=== PATIENT | female | born 1960 | race American Indian/Alaskan Native ===

== ENCOUNTER 2017-07-02 03:06 | Emergency (ER) | payer SELFPAY ==
--- NOTE | 2017-07-02 08:07 | Emergency Department Report ---
HPI - General Chief Complaint: Neck Pain/Injury Time Seen by Provider: 07/02/17 07:53 - HPI HPI: Patient reports that she went to [facility] a few days ago and was treated for chronic neck pain and headache. Patient seemed to be very anxious about her blood pressure although on [facility] discharge report her blood pressure was stable and today her blood pressure is 146/74 on presentation to the emergency room. Patient's report in headache at the back of her head that feels like pressure. Neck pain 8 out of 10 which is chronic. She reports pain is radiating to both hands. Pain is 8 out of 10 and feels achy. Patient does have a history of chronic neck pain but she said that she has not had MRI or CT scan done since she is being followed for her pain. Denies any nasal congestion, runny nose or plugged ears sensation. Denies any back pain or chest pain. Denies any shortness of breath, coughing. She states can baclofen and Motrin which she said is not helping and this was prescribed by [facility]. She denies any fever or chills or neck pain or stiffness ED Past Medical Hx - Past Medical History Previous Medical History?: No - Surgical History Past Surgical History?: Yes Additional Surgical History: HYSTERECTOMY - Family History Family history: hypertension - Social History Smoking Status: Never Smoker Substance Use Type: None - Medications Home Medications: Home Medications Medication Instructions Recorded Confirmed Last Taken Type Amoxicillin [Amoxicillin TAB] 875 mg PO BID 7 Days #14 tablet 07/02/17 Unknown Rx Baclofen [Lioresal] 10 mg PO TID 07/02/17 07/02/17 1 Day Ago History ~07/01/17 Cetirizine HCl [ZyrTEC] 10 mg PO QDAY 10 Days #1 capsule 07/02/17 Unknown Rx Ibuprofen [Motrin 400 MG tab] 400 mg PO Q6HR 07/02/17 07/02/17 1 Day Ago History ~07/01/17 traMADol [Ultram] 50 mg PO Q6HR PRN #12 tablet 07/02/17 Unknown Rx ED Review of Systems ROS: Stated complaint: HEADACHE Other details as noted in HPI Comment: All other systems reviewed and negative Constitutional: no symptoms reported ENT: denies: ear pain, throat pain, dental pain, hearing loss, congestion Respiratory: no symptoms reported Cardiovascular: denies: chest pain, palpitations, dyspnea on exertion, edema, syncope, paroxysmal nocturnal dyspnea Gastrointestinal: denies: abdominal pain, nausea, vomiting, diarrhea, constipation Genitourinary: denies: dysuria, hematuria Musculoskeletal: arthralgia (chronic neck pain). denies: back pain, joint swelling, myalgia Skin: denies: rash Psychiatric: anxiety (about health) Physical Exam - Physical Exam Vital Signs: Vital Signs 07/02/17 03:35 Temperature 97.9 F Pulse Rate 81 Respiratory 18 Rate Blood Pressure 146/74 O2 Sat by Pulse 97 Oximetry Vital Signs 07/02/17 07/02/17 03:35 09:14 Temperature 97.9 F Pulse Rate 81 67 Respiratory 18 18 Rate Blood Pressure 146/74 Blood Pressure 150/81 [Left] O2 Sat by Pulse 97 98 Oximetry General: This is a 57-year-old female well-nourished well-developed in no acute distress Physical Exam: Head: Normocephalic, atraumatic, no abrasion, no bruising and no contusion. Eyes: Biateral pupils equal and reactive to light, bilateral EOM intact.. Bilateral conjunctival and sclera without injection, normal accommodation. No nystagmus Mouth: Moist, no pharyngeal exudate or erythema. No peritonsillar abscesses. Uvula is midline and oral airways patent. Ears: Bilateral TM congested without erythema. Bilateral EAC without any redness swelling or drainage. No mastoid bone tenderness Nose: Bilateral nasal turbinates congested with erythema and clear drainage. Maxillary and frontal sinuses non- tender to palpate. Neck: Supple, No Cervical adenopathy, full range of motion and no C-spine tenderness. No swelling or tracheal deviation normal reflexes Cardiovascular: S1, S2. Regular rate and rhythm. No murmur. Capillary refill is less then 3 seconds. Lungs: Clear to auscultate bilaterally. No rhonchi, wheezes or rales. No chest wall tenderness. No chest contusion. No bruising to chest. MSK: Strength 5/5 in all extremities. No joint deformity or crepitus. Normal inspection. Full range of motion to all extremities. No laceration, abrasion or ecchymotic area noted. Abdomen: Non-tender to palpate in all quadrants, no guarding or rebound tenderness, positive bowel sounds in all quadrants. No CVA tenderness. No hernia, bruit or mass. No rigidity or distention. Extremities: No clubbing, cyanosis or edema. +2 pulses. No neurovascular compromise Skin: Clean, dry and intact. No rash or lesions. Neurological: GCS at 15, Pt is alert and oriented 3 speech is clear. Bilateral hand oncology rn strong and equal. Normal gait. Negative Romberg and no pronator drift. Normal Reflexes. No motor or sensory deficit Back: No vertebral tenderness, no paraspinal tenderness. Ambulates without any difficulties. Psych: Mild anxiety otherwise normal ED Course Vital Signs 07/02/17 03:35 Temperature 97.9 F Pulse Rate 81 Respiratory 18 Rate Blood Pressure 146/74 O2 Sat by Pulse 97 Oximetry Vital Signs 07/02/17 07/02/17 03:35 09:14 Temperature 97.9 F Pulse Rate 81 67 Respiratory 18 18 Rate Blood Pressure 146/74 Blood Pressure 150/81 [Left] O2 Sat by Pulse 97 98 Oximetry - Reevaluation(s) Reevaluation #1: 07/02/17 09:26 Patient given Valium 5 mg by mouth for anxiety about health and Salvo 5/325 one tablet by mouth for headache and neck pain. ED Medical Decision Making - Radiology Data Radiology results: report reviewed CT scan of C-spine reveals patient with no acute cervical spine fracture. Sensitivity of fracture detection is decreased by demineralization and degenerative finding. She has degenerative findings to C4 and 5 [address] C[address] 6[address] scan of head/brain without contrast no acute intracranial abdominal 80s. Right maxillary sinus causes significant versus mucosal retention cysts. No paranasal sinus air fluid level. - Medical Decision Making ED course: Patient here for chronic neck pain and also headache and was recently seen at [facility] and placed on baclofen and Motrin which she said is not helping. She says she did not have any kind of x-rays or CT scan done and she' s been having headache and neck pain for a while. CT scan of the head reveals no acute intracranial processes incidental finding for mucus thickening in a firm answer sinus with probably mucous retention cyst. CT of the next reveal degenerative disc disease with no acute fracture or subluxation. Please refer to radiology section for details on CT scan result. Patient is very anxious about her health and her blood pressure which has been stable. I discussed with her she needs to keep a log of her blood pressure and she does have a primary care physician so I told her to keep a log and record her blood pressure daily schedule an appointment and discuss her blood pressure with her primary care physician and if she needs to be started on something primary care physician will start her on medication but at this point she does not need any thing for her blood pressure because it is stable. I also discussed with her her CT scan findings. Patient was understanding the discharge diagnosis and treatment plan. She was given Valium 5 mg by mouth for anxiety about health and Salvo 5/325 one tablet for chronic neck pain and headache. The patient remained stable throughout ED course. She was discharged home with her family member with prescription for amoxicillin for probably sinusitis, Ultram for pain and I discussed with her that she'll need to follow up with a neurologist, orthopedic doctor and primary care physician who her primary care doctor can refer her to. She voiced understanding. Critical care attestation.: If time is entered above; I have spent that time in minutes in the direct care of this critically ill patient, excluding procedure time. ED Disposition Clinical Impression: Sinus mucosal thickening, Degenerative cervical disc, Chronic neck pain, Cervical radiculopathy Sinusitis Qualifiers: Sinusitis location: maxillary Chronicity: acute Recurrence: not specified as recurrent Qualified Code(s): J01.00 - Acute maxillary sinusitis, unspecified Headache Qualifiers: Headache type: unspecified Headache chronicity pattern: episodic headache Intractability: not intractable Qualified Code(s): R51 - Headache Disposition: DC-01 TO HOME OR SELFCARE Is pt being admited?: No Does the pt Need Aspirin: No Condition: Stable Instructions: Cervical Radiculopathy (ED), Degenerative Disc Disease (ED), Sinusitis (ED), Acute Headache (ED), How to Take a Blood Pressure (ED), Heart Healthy Diet (ED), Low Sodium Diet (ED) Additional Instructions: Please take blood pressure daily and keep a log and call your primary care physician to schedule an appointment Orthopedic doctor and urologist referral. Take Ultram and this will help with the pain but please not drive or operate heavy machinery while taking this medication You can have your doctor requesting a medical records to include CT scans from hospital You have a normal sinus findings on CT scan which could be sinusitis or a sinusitis and will need to follow with ear nose and throat doctor for further evaluation and treatment Prescriptions: Amoxicillin [Amoxicillin TAB] 875 mg PO BID 7 Days #14 tablet Cetirizine HCl [ZyrTEC] 10 mg PO QDAY 10 Days #1 capsule traMADol [Ultram] 50 mg PO Q6HR PRN #12 tablet PRN Reason: Pain Referrals: follow-up with your, primary care physician [Other] - 2-3 Days LEVY BROWN MD [Staff Physician] - 2-3 Days SALVADOR CAPELLAN MD [Staff Physician] - 2-3 Days JOMAR HENDERSON MD [Staff Physician] - 2-3 Days [facility] [Outside] - 2-3 Days Forms: Work/School Release Form(ED)
--- NOTE | 2017-07-02 08:45 | Cat Scan Report ---
FINAL REPORT EXAM: CT HEAD/BRAIN WO CON HISTORY: headache TECHNIQUE: CT imaging acquired through the head without intravenous contrast. Transaxial reformations are provided. PRIORS: None. FINDINGS: The ventricles, cisterns and sulci are within normal limits. No intraparenchymal or extra-axial mass, hemorrhage, or mass effect. Sykes and white-matter differentiation is within normal limits for patient age. Normal spherical shape of the globes. Right maxillary sinus mucous retention cyst/mucosal thickening. No paranasal sinus fluid levels. No significant abnormality involving the imaged portions of the remaining paranasal sinuses and mastoid air cells. No skull or facial fracture visualized. IMPRESSION: No acute intracranial abnormality. Right maxillary sinus mucosal thickening versus mucous retention cyst. No paranasal sinus air-fluid level.
--- NOTE | 2017-07-02 08:49 | Cat Scan Report ---
FINAL REPORT EXAM: CT CERVICAL SPINE WO CON HISTORY: neck pain with radiculopathy TECHNIQUE: CT imaging is acquired through the cervical spine without contrast. Transaxial, coronal and sagittal reformations are provided. PRIORS: None. FINDINGS: The cervical spine appears intact. Diffuse demineralization is suggested. Diffuse mild intervertebral disc space narrowing with associated endplate spondylosis and endplate remodeling. Calcification of the posterior longitudinal ligament is present at C4-C5 and C5-C6. Vertebral body heights are otherwise preserved. No acute fracture or listhesis. Atlanto-dens interval and odontoid process are intact. No perivertebral soft tissue swelling or hematoma identified. Limited soft tissue exam of the visualized neck is unremarkable. IMPRESSION: No acute cervical spine fracture identified. Sensitivity of fracture detection is decreased by demineralization and degenerative findings.Correlate with physical exam and follow up as warranted. Ossification of the posterior longitudinal ligament at C4-C5 and C5-C6.
[2017-07-02 09:14] VITALS: BP 150/81
[2017-07-02] MEDS ORDERED: NORCO 5/325 PO ONE (09:17)
[2017-07-02] MEDS ORDERED: VALIUM PO ONE (09:17)
== END 2017-07-02 09:52 | disposition home or self-care (01) ==
LOC: ED 03:06
DX: M50.10 Cervical disc disorder with radiculopathy, unspecified cervical region (principal); J01.00 Acute maxillary sinusitis, unspecified; G89.29 Other chronic pain; Z90.710 Acquired absence of both cervix and uterus
CPT/HCPCS: 70450; 72125

== ENCOUNTER 2019-02-11 00:38 | Emergency (ER) | payer SELFPAY ==
[2019-02-11 01:07] VITALS: BP 175/81
--- NOTE | 2019-02-11 02:21 | XRay Report ---
RIGHT KNEE 3 VIEWS INDICATION / CLINICAL INFORMATION: right knee pain COMPARISON: None available. FINDINGS: BONES / JOINT(S): No acute fracture or subluxation. No significant arthritis. SOFT TISSUES: No significant abnormality. ADDITIONAL FINDINGS: None. Signer Name: Rome Cason MD Signed: 02/11/2019 2:17 AM Workstation Name: [id number]
--- NOTE | 2019-02-11 02:22 | XRay Report ---
LUMBAR SPINE 3 VIEWS INDICATION: right lower back pain COMPARISON: None. FINDINGS: There is no fracture, subluxation, or other acute radiographic abnormality of the lumbar spine. There is minimal discogenic degenerative change at L5-S1. Signer Name: Rome Cason MD Signed: 02/11/2019 2:18 AM Workstation Name: [id number]
--- NOTE | 2019-02-11 02:24 | XRay Report ---
RIGHT FOOT 3 VIEWS INDICATION / CLINICAL INFORMATION: right foot pain COMPARISON: None available. FINDINGS: BONES / JOINT(S): There is a tiny ossification medial to the distal aspect of the proximal phalanx of the great toe which could represent a tiny avulsion fragment. There is degenerative change in the fi fth MTP joint SOFT TISSUES: No significant abnormality. ADDITIONAL FINDINGS: None. Signer Name: Rome Cason MD Signed: 02/11/2019 2:19 AM Workstation Name: [email or web address]
--- NOTE | 2019-02-11 02:25 | XRay Report ---
RIGHT WRIST 4 VIEWS INDICATION / CLINICAL INFORMATION: right wrist pain COMPARISON: None available. FINDINGS: BONES / JOINT(S): No acute fracture or subluxation. No significant arthritis. SOFT TISSUES: No significant abnormality. ADDITIONAL FINDINGS: None. Signer Name: Rome Cason MD Signed: 02/11/2019 2:20 AM Workstation Name: [email or web address][id number]
[2019-02-11] MEDS ORDERED: SKELAXIN PO STA (04:30)
[2019-02-11] MEDS ORDERED: NORCO 5/325 PO STA (04:30)
--- NOTE | 2019-02-11 04:51 | Emergency Department Report ---
ED Fall HPI - General Chief Complaint: Extremity Injury, Lower Stated Complaint: TOE, BACK, KNEE, WRIST, BACK OF HEAD PAIN Time Seen by Provider: 02/11/19 03:36 Source: patient Mode of arrival: Ambulatory - History of Present Illness Initial Comments: 58-year-old [place] female, walking in the store, tripped over something protruding out from the counter cold her balance. She tends to grab a noose stand to stop her from falling over. She continued to fall backwards striking her head on the back, hitting the back of her head causing a headache and pain to her knee back and neck region. Complaint: fall - Related Data Home Medications Medication Instructions Recorded Confirmed Last Taken Baclofen [Lioresal] 10 mg PO TID 07/02/17 07/02/17 1 Day Ago ~07/01/17 Ibuprofen [Motrin 400 MG tab] 400 mg PO Q6HR 07/02/17 07/02/17 1 Day Ago ~07/01/17 Previous Rx's Medication Instructions Recorded Last Taken Type Amoxicillin [Amoxicillin TAB] 875 mg PO BID 7 Days #14 tablet 07/02/17 Unknown Rx Cetirizine HCl [ZyrTEC] 10 mg PO QDAY 10 Days #1 capsule 07/02/17 Unknown Rx traMADol [Ultram] 50 mg PO Q6HR PRN #12 tablet 07/02/17 Unknown Rx Ketorolac [Toradol] 10 mg PO Q6H PRN #15 tablet 02/11/19 Unknown Rx methOCARBAMOL [Robaxin] 750 mg PO Q8H PRN #21 tablet 02/11/19 Unknown Rx Allergies Allergy/AdvReac Type Severity Reaction Status Date / Time No Known Allergies Allergy Unverified 07/02/17 03:34 ED Review of Systems ROS: Stated complaint: TOE, BACK, KNEE, WRIST, BACK OF HEAD PAIN Other details as noted in HPI Comment: All other systems reviewed and negative ED Past Medical Hx - Past Medical History Previous Medical History?: Yes Hx Hypertension: Yes - Surgical History Past Surgical History?: Yes Additional Surgical History: HYSTERECTOMY - Social History Smoking Status: Never Smoker Substance Use Type: None - Medications Home Medications: Home Medications Medication Instructions Recorded Confirmed Last Taken Type Amoxicillin [Amoxicillin TAB] 875 mg PO BID 7 Days #14 tablet 07/02/17 Unknown Rx Baclofen [Lioresal] 10 mg PO TID 07/02/17 07/02/17 1 Day Ago History ~07/01/17 Cetirizine HCl [ZyrTEC] 10 mg PO QDAY 10 Days #1 capsule 07/02/17 Unknown Rx Ibuprofen [Motrin 400 MG tab] 400 mg PO Q6HR 07/02/17 07/02/17 1 Day Ago History ~07/01/17 traMADol [Ultram] 50 mg PO Q6HR PRN #12 tablet 07/02/17 Unknown Rx Ketorolac [Toradol] 10 mg PO Q6H PRN #15 tablet 02/11/19 Unknown Rx methOCARBAMOL [Robaxin] 750 mg PO Q8H PRN #21 tablet 02/11/19 Unknown Rx ED Physical Exam - General Limitations: No Limitations General appearance: alert, in no apparent distress - Head Head exam: Present: atraumatic, normocephalic - Eye Eye exam: Present: normal appearance - ENT ENT exam: Present: mucous membranes moist - Neck Neck exam: Present: normal inspection, full ROM - Respiratory Respiratory exam: Present: normal lung sounds bilaterally. Absent: respiratory distress, wheezes, rales, rhonchi, chest wall tenderness, accessory muscle use - Cardiovascular Cardiovascular Exam: Present: regular rate, normal rhythm. Absent: systolic murmur, diastolic murmur, rubs, gallop - GI/Abdominal GI/Abdominal exam: Present: soft, normal bowel sounds. Absent: tenderness, guarding, rebound, hyperactive bowel sounds, hypoactive bowel sounds - Extremities Exam Extremities exam: Present: normal inspection, full ROM, tenderness (the right knee with palpation. Full range of motion. Normal varus and valgus. No deformity. Drawer test is negative.), normal capillary refill - Back Exam Back exam: Present: normal inspection, paraspinal tenderness. Absent: CVA tenderness (R), CVA tenderness (L), muscle spasm, vertebral tenderness - Neurological Exam Neurological exam: Present: alert, oriented X3, CN II-XII intact, normal gait - Psychiatric Psychiatric exam: Present: normal affect, normal mood - Skin Skin exam: Present: warm, dry, normal color. Absent: intact (superficial abrasion to the abdomen noted), rash ED Course Vital Signs 02/11/19 01:04 Temperature 98.4 F Pulse Rate 72 Respiratory 16 Rate Blood Pressure 175/81 O2 Sat by Pulse 96 Oximetry Critical care attestation.: If time is entered above; I have spent that time in minutes in the direct care of this critically ill patient, excluding procedure time. ED Disposition Condition: Stable Prescriptions: methOCARBAMOL [Robaxin] 750 mg PO Q8H PRN #21 tablet PRN Reason: Spasms Ketorolac [Toradol] 10 mg PO Q6H PRN #15 tablet PRN Reason: Pain Referrals: PRIMARY CARE, [Primary Care Provider] - 3-5 Days
== END 2019-02-11 05:33 | disposition home or self-care (01) ==
LOC: ED 00:38
DX: R51 Headache (principal); M25.561 Pain in right knee; I10 Essential (primary) hypertension; Z98.890 Other specified postprocedural states; Z90.710 Acquired absence of both cervix and uterus; Z79.899 Other long term (current) drug therapy
CPT/HCPCS: 72100; 99283